=== PATIENT | female | born 1960 | race Caucasian/White ===

== ENCOUNTER → 2018-07-20 | Outpatient (REF) ==
[~2018-07-20] MED LIST: ASPIRIN EC81 MG PO; COREG CR20 MG PO; KLONOPIN2 MG PO; LEVOTHYROXIN25 MC1 PO; LEVOTHYROXINE; LISINOPRIL20 MG PO; MEGESTROL AC20 MG PO; METFORMIN850 MG PO; RAMIPRIL1.25 MG PO; RANITIDINE150 M1 OR; ZOCOR10 MG PO; [UNRECOGNIZED DRUG - OTHER] PO
== END | disposition home or self-care (01) | DRG 864 ==
LOC: LABSPEC 12:50
PROVIDERS: ATTEND Nurse Practitioner Family
DX: R50.9 Fever, unspecified (principal); R53.81 Other malaise

== ENCOUNTER 2019-04-13 08:41 | Day surgery (SDC) | payer BC ==
[~2019-04-13 08:41] MED LIST changes: -COREG CR20 MG PO; +COREG6.25 MG PO; +DIOVAN160 MG PO; +JANUVIA100 MG PO; +METFORMIN500 MG PO; +MULTI VIT PO; +NORVASC5 M1 PO; +OMEPRAZOLE20 M2 PO; +VITAMIN C 500 M1 CHW PO
[2019-04-13] MEDS ORDERED: PERCOCET 5/325M1 TAB PO (12:11)
[2019-04-13] MEDS ORDERED: BACTRIM DS1 TAB PO (12:11)
[2019-04-13 14:34] VITALS: BP 117/56
== END 2019-04-13 14:57 | disposition home or self-care (01) | DRG 419 ==
LOC: ORM 08:41
PROVIDERS: ATTEND Surgery
PROC: 0FT44ZZ Resection of Gallbladder, Percutaneous Endoscopic Approach (ICD-10-PCS; principal; 2019-04-13)
DX: K80.12 Calculus of gallbladder with acute and chronic cholecystitis without obstruction (principal); I10 Essential (primary) hypertension; E11.9 Type 2 diabetes mellitus without complications
CPT/HCPCS: J0131; J2710; Q9967

== ENCOUNTER 2022-11-26 07:05 | Day surgery (SDC) | payer OTHER ==
[~2022-11-26] VITALS: Ht 170.2 cm; Wt 145.1 kg
[~2022-11-26 07:05] MED LIST changes: +B-12 TR 1000 MC1 TAB IN; +BACTRIM DS1 TAB PO; +COZAAR100 MG PO; +GLIPIZIDE ER5 M1 PO; +PERCOCET 5/325M1 TAB PO; +REPAGLINIDE2 MG PO; +TRULICITY3 MG/0.5 M IN
[2022-11-26 11:04] VITALS: BP 111/78
== END 2022-11-26 10:50 | disposition home or self-care (01) | DRG 951 ==
LOC: ENDO 07:05
PROVIDERS: ATTEND Surgery
PROC: 0DBN8ZX Excision of Sigmoid Colon, Via Natural or Artificial Opening Endoscopic, Diagnostic (ICD-10-PCS; principal; 2022-11-26)
DX: Z12.11 Encounter for screening for malignant neoplasm of colon (principal); D12.5 Benign neoplasm of sigmoid colon; K57.30 Diverticulosis of large intestine without perforation or abscess without bleeding; K64.8 Other hemorrhoids; I12.9 Hypertensive chronic kidney disease with stage 1 through stage 4 chronic kidney disease, or unspecified chronic kidney disease; E11.22 Type 2 diabetes mellitus with diabetic chronic kidney disease; N18.9 Chronic kidney disease, unspecified; E03.9 Hypothyroidism, unspecified; E78.5 Hyperlipidemia, unspecified; K21.9 Gastro-esophageal reflux disease without esophagitis; Z79.85 Long-term (current) use of injectable non-insulin antidiabetic drugs; Z79.84 Long term (current) use of oral hypoglycemic drugs